=== PATIENT | female | born 1980 | race Caucasian/White ===

== ENCOUNTER 2016-12-07 13:34 | Emergency (ER) | payer SELFPAY ==
[~2016-12-07] VITALS: Ht 154.9 cm; Wt 43.0 kg
[~2016-12-07 13:34] MED LIST: ALBU8I INH; BENT20TA PO; DILA8TAB4 PO; GABA600T PO; TRAZ100T4; ZOFR4TAB3 PO
[2016-12-07 13:36] VITALS: BP 156/98; PULSE 114; RESP 18; TEMP 98.3; O2SAT 96
[2016-12-07] MEDS ORDERED: TRAZ100T6 PO (13:52)
--- NOTE | 2016-12-07 14:04 | PD ---
HPI Chief Complaint: Psychiatric Symptoms Time Seen by Provider: 13:42 Travel History International Travel<30 days: No Contact w/Intl Traveler<30days: No Traveled to known affect area: No History of Present Illness HPI 35-year-old female arrives complaining of itchiness about the arms and hands. Location skin. Severity severe. Timing constant. She notes a friend of hers has a similar rash. She wonders if it may be scabies. PFSH Past Medical History Autoimmune Disease: No Bipolar Disorder: Yes Anxiety: Yes Depression: Yes (CHRONIC) Heart Rhythm Problems: Yes (palpitations) Cancer: No Cardiovascular Problems: Yes Chest Pain: Yes (COSTOCHONDRITIS) Cerebrovascular Accident: Yes Diabetes: No Diminished Hearing: No Endocrine: No Gastrointestinal Disorders: Yes (HEPATITIS C, CONSTIPATION) Genitourinary: Yes Headaches: Yes Hepatitis: Yes (C) Hypertension: Yes Immune Disorder: No Implanted Vascular Access Dvce: Yes Musculoskeletal: Yes Neurologic: Yes Reproductive: No Respiratory: Yes Immunizations Current: No Migraines: Yes Sleep Apnea: Yes Ulcer: Yes (STOMACH) Influenza Vaccination: No PNEUMOCCOCAL Vaccine (Year): 3 ?: Not LMP: 3 DAYS : 0 Past Surgical History Body Medical Devices: PER PATIENT. PIERCING, NOSE, EARS, NIPPLES, PERINEAL AREA , NAVEL Oral Surgery: Yes (WISDOM TEETH) Other Surgery: Yes Family History Family Myocardial Infarction: Yes (FATHER) Social History Alcohol Use: No Tobacco Use: Yes (5 CIGS PER DAY) Substance Use: Yes (cocaine, IV duilaudid) Allergies-Medications (Allergen,Severity, Reaction): Coded Allergies: No Known Allergies (Verified , 12/07/16) Reported Meds & Prescriptions Reported Meds & Active Scripts Active Permethrin Topical 5% (Permethrin) 5% Cream 1 Applic TOPICAL ONCE Reported Trazodone (Trazodone HCl) 100 Mg Tablet 200 Mg PO HS Review of Systems Except as stated in HPI: all other systems reviewed are Neg Physical Exam Narrative GENERAL: 35-year-old female thin hyperactive SKIN: Focused skin assessment warm/dry. Intertriginous linear lesions concerning for scabies. HEAD: Atraumatic. Normocephalic. EYES: Pupils equal and round. No scleral icterus. No injection or drainage. ENT: No nasal bleeding or discharge. Mucous membranes pink and moist. NECK: Trachea midline. No JVD. Data Data Last Documented VS Vital Signs Date Time Temp Pulse Resp B/P Pulse Ox O2 Delivery O2 Flow Rate FiO2 12/07/16 13:36 98.3 114 18 156/98 96 MDM Medical Decision Making Medical Screen Exam Complete: Yes Emergency Medical Condition: Yes Differential Diagnosis Scabies, dermatitis, bedbugs, amphetamines intoxication Narrative Course Patient may have scabies. 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 We'll prescribe permethrin cream. Diagnosis Primary Impression: Rash and nonspecific skin eruption Referrals: [facility] 2 days Additional Instructions: You have a choice when it comes to health care, and we are glad that you chose [facility]. Hopefully, we have met your expectations on today's visit. You are welcome to return to [facility] at any time, as we are committed to meeting the health care needs of our community. Med/Other Pt SpecificInfo: No Change to Meds Scripts Permethrin Topical 5% 5% Cream1 Applic TOPICAL ONCE #1 TUBE Ref 0 Prov:Alan Ragsdale MD 12/07/16 Disposition: 01 DISCHARGE HOME Condition: Stable Alan Ragsdale MD Dec 07, 2016 14:04
[2016-12-07] MEDS ORDERED: PERM5CRE TOPICAL (14:05)
== END 2016-12-07 14:26 | disposition home or self-care (01) ==
LOC: PHED 13:34
DX: R21 Rash and other nonspecific skin eruption (principal); L29.9 Pruritus, unspecified; I10 Essential (primary) hypertension; G47.30 Sleep apnea, unspecified; Z72.0 Tobacco use; Z86.59 Personal history of other mental and behavioral disorders; Z86.79 Personal history of other diseases of the circulatory system; Z87.19 Personal history of other diseases of the digestive system; Z87.448 Personal history of other diseases of urinary system; Z87.39 Personal history of other diseases of the musculoskeletal system and connective tissue; Z86.69 Personal history of other diseases of the nervous system and sense organs; Z87.09 Personal history of other diseases of the respiratory system
CPT/HCPCS: 99283

== ENCOUNTER 2017-11-26 08:08 | Emergency (ER) | payer SELFPAY ==
[~2017-11-26] VITALS: Ht 154.9 cm; Wt 41.0 kg
[~2017-11-26 08:08] MED LIST changes: -ALBU8I INH; -BENT20TA PO; -DILA8TAB4 PO; -GABA600T PO; +PERM5CRE TOPICAL; +TRAZ100T10 PO; -TRAZ100T4; -ZOFR4TAB3 PO
[2017-11-26 08:15] VITALS: BP 109/51; PULSE 83; RESP 18; TEMP 98.8; O2SAT 96
[2017-11-26] MEDS ORDERED: LIDOCAINE HCL 1% 50 ML VIAL INFIL ONE (08:45)
[2017-11-26] MEDS ORDERED: LIDOCAINE HCL 1% PF 30 ML VIAL ONE (08:56)
[2017-11-26 09:10] LABS: AUTOMATED NEUTROPHIL # 8.9 TH/MM3 (1.8-7.7); BASOPHIL # 0.2 TH/MM3 (0-0.2); BASOPHIL % 1.8 % (0.0-2.0); EOSINOPHIL # 0.1 TH/MM3 (0-0.4); EOSINOPHIL % 1.2 % (0.0-4.0); HEMATOCRIT 38.4 % (35.0-46.0); HEMOGLOBIN 12.8 GM/DL (11.6-15.3); LYMPH % 9.3 % (9.0-44.0); MEAN CELL VOLUME 81.1 FL (80.0-100.0); MEAN CORPUSCULAR HGB CONC 33.2 % (32.0-36.0); MEAN PLATELET VOLUME 7.2 FL (7.0-11.0); MONO % 6.4 % (0.0-8.0); MONOCYTE # 0.7 TH/MM3 (0-0.9); NEUT % 81.3 % (16.0-70.0); PLATELET COUNT 264 TH/MM3 (150-450); RED BLOOD COUNT 4.74 MIL/MM3 (4.00-5.30); WHITE BLOOD COUNT 10.9 TH/MM3 (4.0-11.0)
--- NOTE | 2017-11-26 09:23 | PD ---
Physical Exam Time Seen by Provider: 09:23 Data Data Last Documented VS Vital Signs Date Time Temp Pulse Resp B/P (MAP) Pulse Ox O2 Delivery O2 Flow Rate FiO2 11/26/17 08:15 98.8 83 18 109/51 (70) 96 Orders Orders Complete Blood Count With Diff (11/26/17 08:43) Comprehensive Metabolic Panel (11/26/17 08:43) ^ Insert Iv (11/26/17 08:43) Westergren Sedimentation Rate (11/26/17 08:43) C-Reactive Protein (Crp) (11/26/17 08:43) Mri Brain W/O Contrast (11/26/17 ) Mri C Spine W&W/O Contrast (11/26/17 ) Mri T Spine W & W/O Contrast (11/26/17 ) Mri L Spine W&W/O Contrast (11/26/17 ) Lidocaine 1% Inj (50 Ml) (Xylocaine 1% I (11/26/17 08:45) Lactic Acid (11/26/17 08:43) Lidocaine Pf 1% Inj (Xylocaine-Mpf 1% In (11/26/17 08:56) Labs Laboratory Tests Test 11/26/17 09:00 White Blood Count 10.9 TH/MM3 Red Blood Count 4.74 MIL/MM3 Hemoglobin 12.8 GM/DL Hematocrit 38.4 % Mean Corpuscular Volume 81.1 FL Mean Corpuscular Hemoglobin 27.0 PG Mean Corpuscular Hemoglobin Concent 33.2 % Red Cell Distribution Width 14.0 % Platelet Count 264 TH/MM3 Mean Platelet Volume 7.2 FL Neutrophils (%) (Auto) 81.3 % Lymphocytes (%) (Auto) 9.3 % Monocytes (%) (Auto) 6.4 % Eosinophils (%) (Auto) 1.2 % Basophils (%) (Auto) 1.8 % Neutrophils # (Auto) 8.9 TH/MM3 Lymphocytes # (Auto) 1.0 TH/MM3 Monocytes # (Auto) 0.7 TH/MM3 Eosinophils # (Auto) 0.1 TH/MM3 Basophils # (Auto) 0.2 TH/MM3 CBC Comment AUTO DIFF MDM Medical Record Reviewed: Yes Supervised Visit with ONESIMO: No Procedures Procedure Narrative INCISION AND DRAINAGE OF ABSCESS: The area was prepped and was sterilely draped. A subcutaneous wheal of 1% Xylocaine without with a total number 2 mL was used to anesthetize the area. The area was properly anesthetized. A number 15 scalpel was used to make a 1-cm incision across the area of the abscess. Cultures were obtained. The abscess was drained an irrigated with normal saline. Quarter inch iodoform packing was placed in the wound. Sterile dressing applied. Patient advised to have packing removed in two days. Condition: Stable Katlyn Gupta Nov 26, 2017 09:23
--- NOTE | 2017-11-26 09:29 | PD ---
HPI Chief Complaint: Skin Problem Time Seen by Provider: 08:36 Travel History International Travel<30 days: No Contact w/Intl Traveler<30days: No Traveled to known affect area: No History of Present Illness HPI This is a 36-year-old female who presents to the emergency department with swelling on her right thigh that has been going on for 3 days, constant, moderate severity with no associated drainage. She has been feeling some fevers and chills. She says for 1 months she has been unable to move her right leg. She has been unable to pull her right ankle up and she has had to lift up her leg when she walks. She has had some back pain which has gotten worse in the thoracic area. She did use IV drugs most recently 4 days ago. PFSH Past Medical History Autoimmune Disease: No Bipolar Disorder: Yes Anxiety: Yes Depression: Yes (CHRONIC) Heart Rhythm Problems: Yes (palpitations) Cancer: No Cardiovascular Problems: Yes Chest Pain: Yes (COSTOCHONDRITIS) Cerebrovascular Accident: Yes Diabetes: No Diminished Hearing: No Endocrine: No Gastrointestinal Disorders: Yes (HEPATITIS C, CONSTIPATION) Genitourinary: Yes Headaches: Yes Hepatitis: Yes (C) Hypertension: Yes Immune Disorder: No Implanted Vascular Access Dvce: Yes Musculoskeletal: Yes Neurologic: Yes Reproductive: No Respiratory: Yes Immunizations Current: No Migraines: Yes Sleep Apnea: Yes Ulcer: Yes (STOMACH) Tetanus Vaccination: < 5 Years Influenza Vaccination: No PNEUMOCCOCAL Vaccine (Year): 3 ?: Not LMP: IRREGULAAR: AUGUST : 0 Past Surgical History Body Medical Devices: PER PATIENT. PIERCING, NOSE, EARS, NIPPLES, PERINEAL AREA , NAVEL Oral Surgery: Yes (WISDOM TEETH) Other Surgery: Yes Family History Family Myocardial Infarction: Yes (FATHER) Social History Alcohol Use: No Tobacco Use: Yes (1/2 PPD) Substance Use: Yes (cocaine, IV duilaudid) Allergies-Medications (Allergen,Severity, Reaction): Coded Allergies: No Known Allergies (Verified Adverse Reaction, Unknown, 11/26/17) Reported Meds & Prescriptions Reported Meds & Active Scripts Active Reported Trazodone (Trazodone HCl) 100 Mg Tablet 200 Mg PO HS Review of Systems Except as stated in HPI: all other systems reviewed are Neg Physical Exam Narrative GENERAL:Well appearing, no acute distress SKIN: 3 cm abscess with surrounding induration and erythema on the right medial aspect of the upper thigh HEAD: Atraumatic. Normocephalic. EYES: Pupils equal and round. No injection or drainage. ENT: Moist mucous membranes NECK: Trachea midline. CARDIOVASCULAR: Regular rate and rhythm. No murmur appreciated. RESPIRATORY: Clear to auscultation. Breath sounds equal bilaterally. GASTROINTESTINAL: Abdomen soft, non-tender, nondistended. MUSCULOSKELETAL: Tender to palpation in the mid thoracic spine. NEUROLOGICAL: Awake and alert. No obvious cranial nerve deficits. Unable to dorsiflex his right foot, decreased sensation to light touch below the right knee on the right lower extremity. PSYCHIATRIC: Appropriate mood and affect; insight and judgment normal. Data Data Last Documented VS Vital Signs Date Time Temp Pulse Resp B/P (MAP) Pulse Ox O2 Delivery O2 Flow Rate FiO2 11/26/17 13:27 67 16 96/49 (65) 94 Room Air 11/26/17 08:15 98.8 Orders Orders Complete Blood Count With Diff (11/26/17 08:43) Comprehensive Metabolic Panel (11/26/17 08:43) ^ Insert Iv (11/26/17 08:43) Westergren Sedimentation Rate (11/26/17 08:43) C-Reactive Protein (Crp) (11/26/17 08:43) Mri Brain W/O Contrast (11/26/17 ) Mri C Spine W&W/O Contrast (11/26/17 ) Mri T Spine W & W/O Contrast (11/26/17 ) Mri L Spine W&W/O Contrast (11/26/17 ) Lidocaine 1% Inj (50 Ml) (Xylocaine 1% I (11/26/17 08:45) Lactic Acid (11/26/17 08:43) Lidocaine Pf 1% Inj (Xylocaine-Mpf 1% In (11/26/17 08:56) Wound Culture And Gram Stain (11/26/17 09:23) Lorazepam Inj (Ativan Inj) (11/26/17 09:45) Gadodiamide Pf Inj (Omniscan Pf Inj) (11/26/17 12:46) Labs Laboratory Tests Test 11/26/17 09:00 11/26/17 09:30 White Blood Count 10.9 TH/MM3 Red Blood Count 4.74 MIL/MM3 Hemoglobin 12.8 GM/DL Hematocrit 38.4 % Mean Corpuscular Volume 81.1 FL Mean Corpuscular Hemoglobin 27.0 PG Mean Corpuscular Hemoglobin Concent 33.2 % Red Cell Distribution Width 14.0 % Platelet Count 264 TH/MM3 Mean Platelet Volume 7.2 FL Neutrophils (%) (Auto) 81.3 % Lymphocytes (%) (Auto) 9.3 % Monocytes (%) (Auto) 6.4 % Eosinophils (%) (Auto) 1.2 % Basophils (%) (Auto) 1.8 % Neutrophils # (Auto) 8.9 TH/MM3 Lymphocytes # (Auto) 1.0 TH/MM3 Monocytes # (Auto) 0.7 TH/MM3 Eosinophils # (Auto) 0.1 TH/MM3 Basophils # (Auto) 0.2 TH/MM3 CBC Comment AUTO DIFF Differential Comment AUTO DIFF CONFIRMED Platelet Estimate NORMAL Platelet Morphology Comment NORMAL Red Cell Morphology Comment NORMAL Erythrocyte Sedimentation Rate 57 mm/hr Blood Urea Nitrogen 10 MG/DL Creatinine 0.72 MG/DL Random Glucose 99 MG/DL Total Protein 8.2 GM/DL Albumin 3.0 GM/DL Calcium Level 9.0 MG/DL Alkaline Phosphatase 76 U/L Aspartate Amino Transf (AST/SGOT) 13 U/L Alanine Aminotransferase (ALT/SGPT) 18 U/L Total Bilirubin 0.5 MG/DL Sodium Level 136 MEQ/L Potassium Level 3.9 MEQ/L Chloride Level 100 MEQ/L Carbon Dioxide Level 30.9 MEQ/L Anion Gap 5 MEQ/L Estimat Glomerular Filtration Rate 91 ML/MIN C-Reactive Protein 6.85 MG/DL Lactic Acid Level 0.8 mmol/L MDM Medical Decision Making Medical Screen Exam Complete: Yes Emergency Medical Condition: Yes Interpretation(s) Afebrile, no tachycardia, normotensive No leukocytosis Sed rate is 57 CRP is 6.8 Lactic acid is normal Last 24 hours Impressions Thoracic Spine MRI 11/26/17 Signed Impressions: CONCLUSION: Negative thoracic spine MRI examination. Lumbar Spine MRI 11/26/17 Signed Impressions: CONCLUSION: Normal examination of the lumbar spine. There are no findings to indicate osteo myelitis. Cervical Spine MRI 11/26/17 Signed Impressions: CONCLUSION: Negative cervical spine MRI examination. Brain MRI 11/26/17 Signed Impressions: CONCLUSION: 1. No acute abnormality seen. 2. Suspect a small areas of prior lacunar infarction seen small foci of increa sed signal at the caudate regions, right basal ganglia, left internal capsule, and right body of the corpus callosum. Differential Diagnosis Osteomyelitis, discitis, stroke, peripheral neuropathy, abscess Narrative Course This is a 36-year-old female who presents to the emergency department with an abscess on her right thigh and a foot drop on the right. She has a history of IV drug use. The foot drop has been present for 1 month. She was placed on a monitor and an IV was established. Labs are all reassuring. Inflammatory markers are elevated but this is likely in the setting of her abscess. Her abscess was incised and drained by the physician occupational therapist assistant. MRI of her brain and her spine were obtained due to her IV drug use, history of stroke and concern for possible discitis or epidural abscess contributing to the patient's foot drop. These were all reassuring. Given this and the fact that the symptoms of been going on for 1 month I think she can follow-up as an outpatient with neurology. She was discharged on oral antibiotic therapy. Diagnosis Primary Impression: Abscess Additional Impression: Foot drop Qualified Codes: M21.371 - Foot drop, right foot Patient Instructions: General Instructions Additional Instructions: Return to the emergency department in 48 hours for packing removal and wound check. If you develop fever, increasing redness, warmth, or spreading of your infection , or severe pain return to the emergency department immediately as you may require antibiotics through your IV. Complete your course of antibiotics as prescribed. Med/Other Pt SpecificInfo: Prescription(s) given Scripts Hydroxyzine HCl (Hydroxyzine HCl) 25 Mg Tab 25 MG PO QID Y for ITCHING, #15 TAB 0 Refills Prov: Jessy Horton MD 11/26/17 Sulfamethoxazole-Trimethoprim (Bactrim DS) 800-160 Mg Tab 1 TAB PO BID for Infection, #14 TAB 0 Refills Prov: Jessy Horton MD 11/26/17 Cephalexin (Keflex) 500 Mg Cap 500 MG PO Q12H for Infection, #14 CAP 0 Refills Prov: Jessy Horton MD 11/26/17 Disposition: 01 DISCHARGE HOME Condition: Stable Jessy Horton MD Nov 26, 2017 09:29
[2017-11-26] MEDS ORDERED: LORazepam 2 MG/ML VIAL IV PUSH ONE (09:45)
[2017-11-26 10:39] VITALS: BP 93/49; PULSE 56; RESP 16; O2SAT 93
[2017-11-26 10:49] LABS: CHLORIDE 100 MEQ/L (98-107); SODIUM (NA) 136 MEQ/L (136-145)
[2017-11-26 10:52] LABS: BICARBONATE 30.9 MEQ/L (21.0-32.0); GLUCOSE,RANDOM 99 MG/DL (74-106)
[2017-11-26 10:53] LABS: BLOOD UREA NITROGEN 10 MG/DL (7-18)
[2017-11-26 10:55] LABS: ALT (GPT) 18 U/L (10-53)
[2017-11-26 10:56] LABS: AST (GOT) 13 U/L (15-37); C-REACTIVE PROTEIN 6.85 MG/DL (0.00-0.30); CREATININE 0.72 MG/DL (0.50-1.00); GLOMERULAR FILTRATION RATE 91 ML/MIN (>89)
[2017-11-26 10:57] LABS: TOTAL BILIRUBIN ADULT 0.5 MG/DL (0.2-1.0); TOTAL PROTEIN 8.2 GM/DL (6.4-8.2)
[2017-11-26 10:58] LABS: ALKALINE PHOSPHATASE 76 U/L (45-117)
--- NOTE | 2017-11-26 11:43 | RADRPT ---
EXAM DATE: 11/26/2017 11:23 AM EDT AGE/SEX: 36 years / Female INDICATIONS: CVA. CLINICAL DATA: This is the patient's initial encounter. Patient reports that signs and symptoms have been present for 1 day and indicates a pain score of 0/10. MEDICAL/SURGICAL HISTORY: Hypertension. None. COMPARISON: [facility] – [place], MRI BRAIN W/O CONTRAST, 10/08/2014. [facility], CT BRAIN W/O CONTRAST, 12/23/2014. . TECHNIQUE: Multiplanar, multisequence examination of the brain was performed without contrast. FINDINGS: Cerebrum: There are several small foci seen on the T2 and FLAIR images at the caudate head regions,, right anterior basal ganglia, and the left anterior limb of the internal capsule, and the right erika us callosal body. These could represent the sequela prior lacunar infarcts. No abnormalities seen on the diffusion-weighted images to suggest acute infarction. These were present on the prior exam. The ventricles are normal for age. No evidence of midline shift, mass lesion, hemorrhage or acute infarc tion. No extraaxial fluid collections are seen. The pituitary gland and suprasellar cistern are nor mal in configuration. White Matter: No significant signal abnormalities are seen in the white matter. Posterior Fossa: The cerebellum and brainstem are intact. The 4th ventricle is midline. The cerebel lopontine angle is unremarkable. The cerebellar tonsils are normal in position. Diffusion Imaging: No focal areas of restricted diffusion are seen. No evidence of acute infarction . Extracranial: The visualized portions of the orbits and paranasal sinuses are unremarkable. CONCLUSION: 1. No acute abnormality seen. 2. Suspect a small areas of prior lacunar infarction seen small foci of increased signal at the caud ate regions, right basal ganglia, left internal capsule, and right body of the corpus callosum. Electronically signed by: Danny Mejias MD 11/26/2017 11:42 AM EDT
[2017-11-26] MEDS ORDERED: GADODIAMIDE PF 287 MG/ML 10 ML VIAL (for RAD MRI) IVCONTRAST ONE (12:46)
[2017-11-26 13:27] VITALS: BP 96/49; PULSE 67; RESP 16; O2SAT 94
--- NOTE | 2017-11-26 13:44 | RADRPT ---
EXAM DATE: 11/26/2017 1:20 PM EDT AGE/SEX: 36 years / Female INDICATIONS: Osteomyelitis. Numbness in lower right leg and foot drop. CLINICAL DATA: This is the patient's initial encounter. Patient reports that signs and symptoms have been present for 1 day and indicates a pain score of 2/10. MEDICAL/SURGICAL HISTORY: Hypertension. None. COMPARISON: [facility] – [place], MRI CERVICAL SPINE W & W/O CONTRAST, 10/05/2014. . TECHNIQUE: Multiplanar, multisequence MRI examination of the cervical spine was performed without an d with 8 ml Omniscan (gadodiamide) contrast as a cumulative dose for multiple exams. FINDINGS: Vertebrae: There is a focal area of increased signal and enhancement seen at the C6 vertebral body. This likely represents a hemangioma. This is stable. No other possible focal bone lesions are seen. N ormal vertebral body height. Alignment: Normal. Cord: Normal configuration and signal. Post Fossa: The cerebellar tonsils are normal in position. Post Contrast: No abnormal areas of enhancement are seen. C2-C3: The thecal sac has a normal configuration. There is no evidence of disc herniation or spinal canal stenosis. The neural foramina are patent bilaterally. C3-C4: The thecal sac has a normal configuration. There is no evidence of disc herniation or spinal canal stenosis. The neural foramina are patent bilaterally. C4-C5: The thecal sac has a normal configuration. There is no evidence of disc herniation or spinal canal stenosis. The neural foramina are patent bilaterally. C5-C6: The thecal sac has a normal configuration. There is no evidence of disc herniation or spinal canal stenosis. The neural foramina are patent bilaterally. C6-C7: The thecal sac has a normal configuration. There is no evidence of disc herniation or spinal canal stenosis. The neural foramina are patent bilaterally. C7-T1: No epidural impressions seen. CONCLUSION: Negative cervical spine MRI examination. Electronically signed by: Danny Mejias MD 11/26/2017 1:43 PM EDT
--- NOTE | 2017-11-26 13:46 | RADRPT ---
EXAM DATE: 11/26/2017 1:21 PM EDT AGE/SEX: 36 years / Female INDICATIONS: Osteomyelitis. Numbness in lower right leg and foot drop. CLINICAL DATA: This is the patient's initial encounter. Patient reports that signs and symptoms have been present for 1 day and indicates a pain score of 4/10. MEDICAL/SURGICAL HISTORY: Hypertension. None. COMPARISON: [facility] – [place], MRI THORACIC SPINE W & W/O CONTRAST, 10/05/2014. . TECHNIQUE: Multiplanar, multisequence MRI of the thoracic spine was performed without and with 8 ml Omniscan (gadodiamide) contrast as a cumulative dose for multiple exams. FINDINGS: Vertebrae: Normal vertebral body height. Homogeneous marrow signal. Alignment: Normal. Cord: Normal position and configuration. Post Contrast: No abnormal areas of enhancement are seen in the cord, dural or paraspinal regions. T1-T2: The thecal sac has a normal diameter. No evidence of disc bulge or protrusion. T2-T3: The thecal sac has a normal diameter. No evidence of disc bulge or protrusion. T3-T4: The thecal sac has a normal diameter. No evidence of disc bulge or protrusion. T4-T5: The thecal sac has a normal diameter. No evidence of disc bulge or protrusion. T5-T6: The thecal sac has a normal diameter. No evidence of disc bulge or protrusion. T6-T7: The thecal sac has a normal diameter. No evidence of disc bulge or protrusion. T7-T8: The thecal sac has a normal diameter. No evidence of disc bulge or protrusion. T8-T9: The thecal sac has a normal diameter. No evidence of disc bulge or protrusion. T9-T10: The thecal sac has a normal diameter. No evidence of disc bulge or protrusion. T10-T11: The thecal sac has a normal diameter. No evidence of disc bulge or protrusion. T11-T12: The thecal sac has a normal diameter. No evidence of disc bulge or protrusion. T12-L1: The thecal sac has a normal diameter. No evidence of disc bulge or protrusion. CONCLUSION: Negative thoracic spine MRI examination. Electronically signed by: Danny Mejias MD 11/26/2017 1:45 PM EDT
--- NOTE | 2017-11-26 14:35 | RADRPT ---
EXAM DATE: 11/26/2017 1:20 PM EDT AGE/SEX: 36 years / Female INDICATIONS: Osteomyelitis. Numbness in right lower leg and foot drop. CLINICAL DATA: This is the patient's initial encounter. Patient reports that signs and symptoms have been present for 1 day and indicates a pain score of 0/10. MEDICAL/SURGICAL HISTORY: Hypertension. None. COMPARISON: [facility] – [place], MRI LUMBAR SPINE W & W/O CONTRAST, 10/05/2014. . TECHNIQUE: Multiplanar, multisequence MRI examination of the lumbar spine was performed without and with 8 ml Omniscan (gadodiamide) contrast as a cumulative dose for multiple exams. FINDINGS: The most caudal-appearing lumbar vertebra is numbered as L5. VERTEBRAE: Bone marrow signal is within normal limits. Vertebral body height is maintained. There is no anterolisthesis or retrolisthesis. CONUS: Normal level and configuration. T12-L1: No disc herniation, canal stenosis, or neural foraminal stenosis. L1-L2: No disc herniation, canal stenosis, or neural foraminal stenosis. L2-L3: No disc herniation, canal stenosis, or neural foraminal stenosis. L3-L4: No disc herniation, canal stenosis, or neural foraminal stenosis. L4-L5: No disc herniation, canal stenosis, or neural foraminal stenosis. L5-S1: No disc herniation, canal stenosis, or neural foraminal stenosis. Other: The visualized surrounding structures demonstrate no acute abnormality. CONCLUSION: Normal examination of the lumbar spine. There are no findings to indicate osteomyelitis. Electronically signed by: Danny Moran MD 11/26/2017 2:34 PM EDT
[2017-11-26] MEDS ORDERED: CEPH-460 PO (14:43)
[2017-11-26] MEDS ORDERED: BACT800T5 PO (14:43)
[2017-11-26] MEDS ORDERED: HYDR-3133 PO (14:43)
[2017-11-26 14:44] VITALS: BP 95/50; PULSE 62; RESP 16; O2SAT 100
== END 2017-11-26 14:52 | disposition home or self-care (01) ==
LOC: PHED 08:08
DX: L02.415 Cutaneous abscess of right lower limb (principal); M21.371 Foot drop, right foot; M54.6 Pain in thoracic spine; B95.4 Other streptococcus as the cause of diseases classified elsewhere; B96.3 Hemophilus influenzae [H. influenzae] as the cause of diseases classified elsewhere; I10 Essential (primary) hypertension; F41.8 Other specified anxiety disorders; F31.9 Bipolar disorder, unspecified; G47.30 Sleep apnea, unspecified; F17.200 Nicotine dependence, unspecified, uncomplicated; Z86.79 Personal history of other diseases of the circulatory system; Z87.19 Personal history of other diseases of the digestive system; Z87.448 Personal history of other diseases of urinary system; Z87.39 Personal history of other diseases of the musculoskeletal system and connective tissue; Z86.69 Personal history of other diseases of the nervous system and sense organs
CPT/HCPCS: 10061; 70551; 72156; 72157; 72158; 80053; 83605; 85025; 85652; 86140; 86403; 87070; 87185; 96374; 99284; A9579; J2060; 87205

== ENCOUNTER 2017-11-28 17:13 | Emergency (ER) | payer SELFPAY ==
[~2017-11-28] VITALS: Ht 154.9 cm; Wt 40.9 kg
[~2017-11-28 17:13] MED LIST changes: +BACT800T5 PO; +CEPH-460 PO; +HYDR-3133 PO; -PERM5CRE TOPICAL
[2017-11-28 17:15] VITALS: BP 102/55; PULSE 72; RESP 18; TEMP 97.8; O2SAT 94
--- NOTE | 2017-11-28 17:39 | PD ---
HPI Chief Complaint: Laceration/Skin Injury Time Seen by Provider: 17:22 Travel History International Travel<30 days: No Contact w/Intl Traveler<30days: No Traveled to known affect area: No History of Present Illness HPI 36-year-old female presents to the emergency department for packing removal to an abscess that was incised and drained 2 days ago in the emergency department. Patient reports localized pain. No fevers or chills. Current pain is 6/10, without radiation. Mild severity. PFSH Past Medical History Autoimmune Disease: No Bipolar Disorder: Yes Anxiety: Yes Depression: Yes (CHRONIC) Heart Rhythm Problems: Yes (palpitations) Cancer: No Cardiovascular Problems: Yes Chest Pain: Yes (COSTOCHONDRITIS) Cerebrovascular Accident: Yes Diabetes: No Diminished Hearing: No Endocrine: No Gastrointestinal Disorders: Yes (HEPATITIS C, CONSTIPATION) Genitourinary: Yes Headaches: Yes Hepatitis: Yes (C) Hypertension: Yes Immune Disorder: No Implanted Vascular Access Dvce: Yes Musculoskeletal: Yes Neurologic: Yes Reproductive: No Respiratory: Yes Immunizations Current: No Migraines: Yes Sleep Apnea: Yes Ulcer: Yes (STOMACH) PNEUMOCCOCAL Vaccine (Year): 3 ?: Not : 0 Past Surgical History Body Medical Devices: PER PATIENT. PIERCING, NOSE, EARS, NIPPLES, PERINEAL AREA , NAVEL Oral Surgery: Yes (WISDOM TEETH) Other Surgery: Yes Family History Family Myocardial Infarction: Yes (FATHER) Social History Alcohol Use: No Tobacco Use: Yes (1/2 PPD) Substance Use: Yes (cocaine, IV duilaudid) Allergies-Medications (Allergen,Severity, Reaction): Coded Allergies: No Known Allergies (Verified Adverse Reaction, Unknown, 11/28/17) Reported Meds & Prescriptions Reported Meds & Active Scripts Active Hydroxyzine HCl 25 Mg Tab 25 Mg PO QID PRN Bactrim DS (Sulfamethoxazole-Trimethoprim) 800-160 Mg Tab 1 Tab PO BID Keflex (Cephalexin) 500 Mg Cap 500 Mg PO Q12H Reported Trazodone (Trazodone HCl) 100 Mg Tablet 200 Mg PO HS Review of Systems Except as stated in HPI: all other systems reviewed are Neg Physical Exam Narrative GENERAL: Well-nourished, well-developed female patient, ambulatory. Afebrile. SKIN: Focused skin assessment warm/dry. Patient has abscess status post incision and drainage to the right upper calf. There is mild erythema. Packing is in place. HEAD: Normocephalic. Atraumatic EYES: No scleral icterus. No injection or drainage. NECK: Supple, trachea midline. No JVD or lymphadenopathy. RESPIRATORY: No accessory muscle use. MUSCULOSKELETAL: No cyanosis, or edema. Data Data Last Documented VS Vital Signs Date Time Temp Pulse Resp B/P (MAP) Pulse Ox O2 Delivery O2 Flow Rate FiO2 11/28/17 17:15 97.8 72 18 102/55 (71) 94 MDM Medical Decision Making Medical Screen Exam Complete: Yes Emergency Medical Condition: Yes Medical Record Reviewed: Yes Differential Diagnosis Reevaluation of abscess versus cellulitis versus failed outpatient therapy Narrative Course 36-year-old female presents to the emergency department for packing removal and reevaluation of abscess to the right upper calf. Packing is removed without difficulty. Abscess is irrigated. Patient is stable for discharge. She is continue antibiotics and wound care. She verbalizes agreement. The patient was discharged in stable condition with instructions, including return instructions and follow up instructions. Diagnosis Primary Impression: Abscess re-check Referrals: Primary Care Physician call for appointment Patient Instructions: Abscess Follow-up (ED), General Instructions Departure Forms: Tests/Procedures Additional Instructions: Clean twice daily with soap and water and apply [id number] antibiotic ointment. Keep clean and dry. No swimming or hot tubs until healed. Continue antibiotics as directed until gone. Follow-up with a primary care physician. Return to the emergency department for any acute worsening of symptoms. Med/Other Pt SpecificInfo: No Change to Meds Disposition: 01 DISCHARGE HOME Condition: Stable Olivia Nguyen Nov 28, 2017 17:39
== END 2017-11-28 17:43 | disposition home or self-care (01) ==
LOC: PHEFT 17:13
DX: Z48.00 Encounter for change or removal of nonsurgical wound dressing (principal)
CPT/HCPCS: 99281